=== PATIENT | female | born 1970 | race Caucasian/White ===

== ENCOUNTER 2022-12-30 21:08 | Observation (INO) | payer SELFPAY ==
[2022-12-30 21:27] LABS: INR 1.12 (0.86-1.11); PTT,PARTIAL THROMBOPLSTIN TIME 23.1 SEC (23.9-30.7)
[2022-12-30 21:37] LABS: BASE EXCESS VENOUS -10.6 (-2.0-3.0); PH,VENOUS 7.15 (7.31-7.41)
[2022-12-30 21:41] LABS: BASOPHILS ABSOLUTE AUTO 0.1 K/uL (0.0-0.1); BASOPHILS PERCENT AUTO 0.3 % (0.0-1.5); EOSINOPHILS ABSOLUTE AUTO 0.2 K/uL (0.0-0.7); EOSINOPHILS PERCENT AUTO 1.6 % (0.0-7.0); HEMATOCRIT 42.9 % (36.0-46.0); HEMOGLOBIN 14.1 g/dL (12.0-16.0); LYMPHOCYTES ABSOLUTE AUTO 6.6 K/uL (0.6-2.4); LYMPHOCYTES PERCENT AUTO 45.4 % (16.0-40.0); MEAN CORPUSCULAR HEMOGLOBIN 30.5 pg (27.0-32.0); MEAN CORPUSCULAR HGB CONC 32.9 g/dL (31.0-37.0); MEAN CORPUSCULAR VOLUME 92.7 fL (80.0-98.0); MONOCYTES ABSOLUTE AUTO 0.8 K/uL (0.0-0.8); MONOCYTES PERCENT AUTO 5.6 % (0.0-15.0); NEUTROPHILS ABSOLUTE AUTO 6.9 K/uL (1.4-5.7); NEUTROPHILS PERCENT AUTO 47.1 % (48.0-80.0); NRBC ABSOLUTE 0 K/uL; PLATELET COUNT,PLT 289 K/uL (150-400); RED BLOOD CELL COUNT 4.63 M/uL (4.30-5.90); WHITE BLOOD CELL COUNT,WBC 14.59 K/uL (4.0-11.0)
[2022-12-30 21:43] LABS: LACTIC ACID 12.2 mmol/L (0.4-2.0)
[2022-12-30 21:46] LABS: ACETAMINOPHEN <2.0 ug/mL; ALANINE AMINOTRANSFERASE,ALT 20 IU/L (14-63); ALBUMIN 3.8 g/dL (3.4-5.0); ALKALINE PHOSPHATASE 98 U/L (46-116); ASPARTATE AMNIOTRANSFERASE,AST 26 IU/L (15-37); BILIRUBIN TOTAL 0.2 mg/dL (0.2-1.0); BLOOD UREA NITROGEN,BUN 16 mg/dL (7.0-18.0); CALCIUM 8.8 mg/dL (8.5-10.1); CARBON DIOXIDE,CO2 20.1 mmol/L (21.0-32.0); CHLORIDE,CL 103 mmol/L (98-107); CREATININE 1.2 mg/dL (0.6-1.0); EST CRCL DRUG DOSING (CG) 56.58 mL/min; ESTIMATED GFR 55 mL/min (>60); ETHANOL BLOOD MEDICAL 3 mg/dL; GLUCOSE RANDOM 149 mg/dL (74-106); POTASSIUM,K 3.8 mmol/L (3.5-5.1); PROTEIN TOTAL,TP 7.7 g/dL (6.4-8.2); SALICYLATE 1.8 mg/dL (0.0-20.0); SODIUM,NA 141 mmol/L (136-145)
[2022-12-30] MEDS ORDERED: Sodium Chloride 0.9% 1,000 ML IV ONE ×3 (21:47→23:54)
[2022-12-30] MEDS ORDERED: Ondansetron 4 MG/2 ML SDV IVPUSH ONE (22:47)
[2022-12-30 22:51] LABS: AMPHETAMINES SCREEN, URINE NEGATIVE (CUTOFF=500); BARBITURATE SCREEN,URINE NEGATIVE (CUTOFF=200); BENZODIAZEPINES SCREEN,URINE NEGATIVE (CUTOFF=150); BUPRENORPHINE SCREEN,URINE NEGATIVE (CUTOFF=10); METHADONE SCREEN, URINE NEGATIVE (CUTOFF=200); METHAMPHETAMINES SCREEN, URINE NEGATIVE (CUTOFF=500); OXYCODONE SCREEN,URINE NEGATIVE (CUT0FF=100); PCP SCREEN,URINE NEGATIVE (CUTOFF=25); PROPOXYPHENE SCREEN,URINE NEGATIVE (CUTOFF=300); THC SCREEN,URINE 20 NG/ML NEGATIVE (CUTOFF=50)
[2022-12-30 22:52] LABS: APPEARANCE,URINE CLEAR; BILIRUBIN,URINE NEGATIVE (NEGATIVE); COLOR,URINE YELLOW; GLUCOSE,URINE NEGATIVE (NEGATIVE); KETONES,URINE NEGATIVE (NEGATIVE); LEUKOCYTE ESTERASE,URINE NEGATIVE (NEGATIVE); NITRITE,URINE NEGATIVE (NEGATIVE); OCCULT BLOOD,URINE SMALL (NEGATIVE); PROTEIN,URINE NEGATIVE (NEGATIVE); UROBILINOGEN,URINE 0.2 EU/dL (<2.0)
[2022-12-30 22:57] LABS: BACTERIA,URINE FEW (NEGATIVE); EPITHELIAL CELLS,URINE FEW (NONE-FEW); MUCUS,URINE LIGHT (NONE-MOD); WBC,URINE 0-2 (0-5/HPF)
[2022-12-30 23:20] LABS: BASE EXCESS VENOUS -1.2 (-2.0-3.0); PH,VENOUS 7.31 (7.31-7.41)
[2022-12-30] MEDS ORDERED: Morphine 4 MG/ML Syringe IVPUSH ONE (23:25)
[2022-12-31] MEDS ORDERED: LORazepam 2 MG/ML SDV IVPUSH PRN (04:52)
[2022-12-31] MEDS ORDERED: Sodium Chloride 0.9% 1,000 ML IV SCH (05:00)
[2022-12-31 06:15] LABS: BASOPHILS PERCENT AUTO 0.2 % (0.0-1.5); EOSINOPHILS PERCENT AUTO 0.1 % (0.0-7.0); HEMATOCRIT 38.4 % (36.0-46.0); HEMOGLOBIN 12.4 g/dL (12.0-16.0); LYMPHOCYTES ABSOLUTE AUTO 2.8 K/uL (0.6-2.4); LYMPHOCYTES PERCENT AUTO 19.1 % (16.0-40.0); MEAN CORPUSCULAR HEMOGLOBIN 29.5 pg (27.0-32.0); MEAN CORPUSCULAR HGB CONC 32.3 g/dL (31.0-37.0); MEAN CORPUSCULAR VOLUME 91.4 fL (80.0-98.0); MONOCYTES ABSOLUTE AUTO 0.6 K/uL (0.0-0.8); MONOCYTES PERCENT AUTO 4.2 % (0.0-15.0); NEUTROPHILS ABSOLUTE AUTO 11.1 K/uL (1.4-5.7); NEUTROPHILS PERCENT AUTO 76.4 % (48.0-80.0); NRBC ABSOLUTE 0 K/uL; PLATELET COUNT,PLT 249 K/uL (150-400); WHITE BLOOD CELL COUNT,WBC 14.59 K/uL (4.0-11.0)
[2022-12-31 06:37] LABS: CALCIUM 7.8 mg/dL (8.5-10.1); CARBON DIOXIDE,CO2 25.2 mmol/L (21.0-32.0); CREATININE 0.7 mg/dL (0.6-1.0); EST CRCL DRUG DOSING (CG) 96.99 mL/min; POTASSIUM,K 3.7 mmol/L (3.5-5.1)
== END 2022-12-31 12:50 | disposition home or self-care (01) ==
LOC: MW.ED 21:08 → MW.MS 12-31 00:24
PROVIDERS: ADMIT Family Medicine; ATTEND Family Medicine
DX: R56.9 Unspecified convulsions (principal)
CPT/HCPCS: 36415; 70450; 71045; 72125; 80048; 80053; 80143; 80179; 80305; 80307; 81001; 82803; 83605; 83735; 84443; 84484; 84703; 85025; 85610; 85730; 93005; J2270; J2405; J7030; 93010; 96361; 96374; 96375; 99284; 99285-25; G0378

== ENCOUNTER 2023-01-03 10:56 | Emergency (ER) | payer SELFPAY ==
[2023-01-03] MEDS ORDERED: Lidocaine 4% 1 each Patch TOP PRN (11:23)
[2023-01-03] MEDS ORDERED: Ketorolac 30 MG/ML SDV IM ONE (11:23)
[2023-01-03 11:49] LABS: BASOPHILS PERCENT AUTO 0.4 % (0.0-1.5); EOSINOPHILS ABSOLUTE AUTO 0.2 K/uL (0.0-0.7); EOSINOPHILS PERCENT AUTO 2.6 % (0.0-7.0); HEMATOCRIT 40.2 % (36.0-46.0); HEMOGLOBIN 13.2 g/dL (12.0-16.0); LYMPHOCYTES PERCENT AUTO 36.3 % (16.0-40.0); MEAN CORPUSCULAR HGB CONC 32.8 g/dL (31.0-37.0); MEAN CORPUSCULAR VOLUME 91.4 fL (80.0-98.0); MONOCYTES ABSOLUTE AUTO 0.3 K/uL (0.0-0.8); MONOCYTES PERCENT AUTO 3.3 % (0.0-15.0); NEUTROPHILS ABSOLUTE AUTO 4.7 K/uL (1.4-5.7); NEUTROPHILS PERCENT AUTO 57.4 % (48.0-80.0); NRBC ABSOLUTE 0 K/uL; PLATELET COUNT,PLT 247 K/uL (150-400); WHITE BLOOD CELL COUNT,WBC 8.13 K/uL (4.0-11.0)
[2023-01-03 12:23] LABS: A/G RATIO 0.9 (0.9-1.6); ALBUMIN 3.5 g/dL (3.4-5.0); BILIRUBIN TOTAL 0.3 mg/dL (0.2-1.0); CALCIUM 8.6 mg/dL (8.5-10.1); CARBON DIOXIDE,CO2 28.6 mmol/L (21.0-32.0); CREATININE 0.7 mg/dL (0.6-1.0); EST CRCL DRUG DOSING (CG) 69.06 mL/min; POTASSIUM,K 3.7 mmol/L (3.5-5.1); PROTEIN TOTAL,TP 7.3 g/dL (6.4-8.2)
== END 2023-01-03 13:02 | disposition home or self-care (01) ==
LOC: MW.ED 10:56
DX: R07.81 Pleurodynia (principal)
CPT/HCPCS: 36415; 71100; 80053; 84484; 85025; 93005; 96372; 99285; A9270; J1885; 93010; 99283

== ENCOUNTER 2023-01-04 18:37 | Emergency (ER) | payer SELFPAY ==
[2023-01-04] MEDS ORDERED: Sodium Chloride 0.9% 1,000 ML IV ONE (18:40)
[2023-01-04] MEDS ORDERED: Ketorolac 30 MG/ML SDV IVPUSH ONE (18:40)
== END 2023-01-04 20:42 | disposition home or self-care (01) ==
LOC: MW.ED 18:37
DX: S20.212D Contusion of left front wall of thorax, subsequent encounter (principal); Z01.89 Encounter for other specified special examinations; Z79.899 Other long term (current) drug therapy; X58.XXXD Exposure to other specified factors, subsequent encounter
CPT/HCPCS: 71250; 93005; 96361; 96374; 99284; J1885; J7030; 93010

== ENCOUNTER 2023-01-20 17:30 | Emergency (ER) | payer SELFPAY ==
[2023-01-20] MEDS ORDERED: Sodium Chloride 0.9% 10 ML Syringe FLUSH PRN (18:11)
[2023-01-20] MEDS ORDERED: Sodium Chloride 0.9% 2.5 ML Syringe FLUSH PRN (18:11)
[2023-01-20 18:34] LABS: BASOPHILS PERCENT AUTO 0.4 % (0.0-1.5); EOSINOPHILS ABSOLUTE AUTO 0.3 K/uL (0.0-0.7); EOSINOPHILS PERCENT AUTO 2.8 % (0.0-7.0); HEMATOCRIT 41.1 % (36.0-46.0); HEMOGLOBIN 13.4 g/dL (12.0-16.0); LYMPHOCYTES ABSOLUTE AUTO 3.6 K/uL (0.6-2.4); LYMPHOCYTES PERCENT AUTO 38.6 % (16.0-40.0); MEAN CORPUSCULAR HGB CONC 32.6 g/dL (31.0-37.0); MEAN CORPUSCULAR VOLUME 92.2 fL (80.0-98.0); MONOCYTES ABSOLUTE AUTO 0.6 K/uL (0.0-0.8); MONOCYTES PERCENT AUTO 6.6 % (0.0-15.0); NEUTROPHILS ABSOLUTE AUTO 4.7 K/uL (1.4-5.7); NEUTROPHILS PERCENT AUTO 51.6 % (48.0-80.0); PLATELET COUNT,PLT 261 K/uL (150-400); RED BLOOD CELL COUNT 4.46 M/uL (4.30-5.90)
[2023-01-20] MEDS ORDERED: Sodium Chloride 0.9% 1,000 ML IV ONE (18:41)
[2023-01-20] MEDS ORDERED: Meclizine 25 MG Tab PO ONE (18:41)
[2023-01-20 18:56] LABS: A/G RATIO 1.2 (0.9-1.6); ALBUMIN 3.9 g/dL (3.4-5.0); BILIRUBIN TOTAL 0.2 mg/dL (0.2-1.0); CALCIUM 8.6 mg/dL (8.5-10.1); CARBON DIOXIDE,CO2 27.5 mmol/L (21.0-32.0); CREATININE 0.7 mg/dL (0.6-1.0); EST CRCL DRUG DOSING (CG) 69.06 mL/min; POTASSIUM,K 3.7 mmol/L (3.5-5.1); PROTEIN TOTAL,TP 7.1 g/dL (6.4-8.2)
[2023-01-20 18:57] LABS: ETHANOL BLOOD MEDICAL < 3.0 mg/dL
[2023-01-20 18:58] LABS: ACETAMINOPHEN <2.0 ug/mL; SALICYLATE 1.2 mg/dL (0.0-20.0)
== END 2023-01-20 20:30 | disposition home or self-care (01) ==
LOC: MW.ED 17:30
DX: R55 Syncope and collapse (principal); I10 Essential (primary) hypertension
CPT/HCPCS: 36415; 70450; 80053; 80143; 80179; 80307; 83690; 83735; 84484; 85025; 85379; 93005; 96360; 99283; A9270; J3490; J7030; 93010